=== PATIENT | male | born 1985 | race Caucasian/White ===

== ENCOUNTER 2017-09-09 08:04 | Day surgery (SDC) | payer MEDICAID ==
[2017-09-09 08:47] VITALS: BP 134/88; BMI 30.7
--- NOTE | 2017-09-09 10:17 | NUR ---
DR SHELL SPOKE WITH FAMILY REGARDING PT NEEDING ACL REPAIR. AWAITING ARRIVAL OF [facility] REP AT THIS TIME.
[2017-09-09] MEDS ORDERED: PERCOCET 10/3251 TA1 PO ×2 (11:26→12:01)
--- NOTE | 2017-09-09 11:43 | NUR ---
ANESTHESIA PLACED BLOCK AFTER PROCEDURE
--- NOTE | 2017-09-09 13:49 | NUR ---
1345-MEDICATED WITH ONE 10MG PERCOCET FOR KNEE PAIN.
--- NOTE | 2017-09-09 14:22 | NUR ---
IV DC WITH CATHER TIP INTACT
--- NOTE | 2017-09-10 10:57 | OP ---
PATIENT NAME: IVETTE FORMAN MEDICAL RECORD: [id number] :87 LOCATION:[facility] ADMISSION DATE: SURGEON: LIAM SHELL MD DATE OF OPERATION: 09/09/2017 PREOPERATIVE DIAGNOSIS: Bucket-handle tear of the medial meniscus. POSTOPERATIVE DIAGNOSES: Bucket-handle tear of the medial meniscus plus complete anterior cruciate ligament tear. PROCEDURES: 1. Arthroscopic anterior cruciate ligament reconstruction allograft. 2. Arthroscopic partial medial meniscectomy. SURGEON: Liam Shell MD ANESTHESIA: General. INTRAOPERATIVE COMPLICATIONS: Essentially, an ACL tear was found where one was not expected. However, after discussion with the family, the plan was carried out to reconstruct the ACL. 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 The meniscus, almost entire medial meniscus, from the capsule had flipped into the notch, required complete debridement back to the posterolateral cartilaginous insertion. OPERATIVE SUMMARY IN DETAIL: After obtaining the appropriate preoperative orthopedic surgery consent as well as anesthetic consultation, evaluation, and clearance, the patient was brought to the operating room and placed on the operating table in supine position. After general laryngeal mask airway was administered, tourniquet was placed about the proximal aspect of the right lower extremity. Right lower extremity was then prepped and draped in a routine sterile fashion. Leg was elevated and exsanguinated, tourniquet inflated to 350 mmHg. Routine inferolateral portal was established followed by superior medial and inferior medial portal. Immediately the diagnostic arthroscopy showed the large bucket-handle tear. Serial and sequential takedown of the bucket-handle tear, which was in the notch showed the patient to have complete ACL tear. The pivot shift and Kianna became much more positive after the bucket-handle tear was removed. At this point, the decision was made to proceed with the ACL. This was the point where I discussed this with the patient's mother. She said by all means fix this. Therefore, after scrubbing back in, guide pin for the tibial tunnel was placed at the ACL footprint. A 11-mm reamer made the tibial tunnel and then over top guide was then used to put the spade tipped pin in the appropriate position, which was drilled to the lateral cortex and on the skin. At this point, the tibial tunnel was reamed to the appropriate depth for the bone block. A pulling loop string was passed. This was then followed by placement of the graft TightRope construct. The graft was well seated as was the button of the TightRope with good compression against the lateral cortex of the femur. The knee was ranged several times to seat the graft and the graft was anchored distally using a bicortical tibial post. Having completed this, the wounds were copiously irrigated and closed in the usual fashion. Tourniquet was deflated. The patient was awakened and taken to the recovery room in stable condition. All final needle and sponge counts were correct. TRANSINT:[id number] Voice Confirmation ID: [id number] DOCUMENT ID: [id number] OPERATIVE REPORT [id number] IVETTE FORMAN MD, LIAM ANDERSON at 1057 CC: [id number] DICTATION DATE: 09/09/17 1132 [facility] GR[facility]ER: 09/09/17 1206 [facility] 09/09/17 [id number] [place] [address]
== END 2017-09-09 14:00 | disposition home or self-care (01) ==
LOC: D.OPS 08:04 → D.PAN 10:30 → D.OPS 12:45
DX: S83.211A Bucket-handle tear of medial meniscus, current injury, right knee, initial encounter (principal); S83.511A Sprain of anterior cruciate ligament of right knee, initial encounter; M94.261 Chondromalacia, right knee; X58.XXXA Exposure to other specified factors, initial encounter; Z01.812 Encounter for preprocedural laboratory examination